=== PATIENT | male | born 1975 | race Caucasian/White ===

== ENCOUNTER 2024-03-06 12:59 | Emergency (ER) | payer OTHER, SELFPAY ==
--- NOTE | ~2024-03-06 | XR_ITS ---
EXAMINATION: XR CHEST CLINICAL INFORMATION: Shortness of breath. COMPARISON: Chest radiograph dated 01/08/2014. TECHNIQUE: 2 views of the chest were obtained. FINDINGS: Trace left-sided pleural effusion. No airspace consolidation. No pneumothorax. Stable cardiomediastinal silhouette. XR/XR chest 2V IMPRESSION: Trace left-sided pleural effusion. Electronically signed by: João Regalado MD 03/06/2024 03:57 PM [facility]
[2024-03-06 13:12] VITALS: BP 125/77; PULSE 98; RESP 20; TEMP 36.5; O2SAT 98; BMI 26.1
--- NOTE | 2024-03-06 13:17 | ED_ITS ---
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 He was sick 3 weeks ago with chest congestion cough runny nose negative viral panels at home treated with a Zpak that did help. He has not traveled, no sick contacts. He did have asthma as a child he notes taking his INH has improved. He is here today from nephro office given persistent dyspnea with exertion and his resting HR is up to 80s from 60s. He feels wiped out since this illness. He is due for rituximab on Tuesday. He notes his swelling is good for him and not worse. MD elicited complaint: shortness of breath Pertinent past history: asthma Onset (ago): week(s) (3) Context: recent illness Timing: intermittent Severity: moderate Exacerbating factors: lying flat and exertion Relieving factors: rest Associated symptoms: cough and other (rhinorrhea at night) Treatment prior to arrival: other (abx) Related Data Allergies Allergy/AdvReac Type Severity Reaction Status Date / Time amoxicillin [AMOXICILLIN] Allergy Unknown NAUSEA, Verified 03/06/24 13:15 FEELING TIRED Review of Systems 2 Review of Systems: Constitutional : No Fever, No Chills ENT/Mouth : No Hoarseness, No sore throat, pos Rhinorrhea Eyes: No Redness, No Discharge, No Vision Changes Cardiovascular : No Chest Pain, positive SOB, positive Dyspnea on Exertion, pos baseline Edema Respiratory : positive Cough, No Sputum, no Wheezing, Gastrointestinal : No Nausea, No Vomiting, No Diarrhea, No abdominal Pain Genitourinary : No Dysuria, No Hematuria Musculoskeletal : No joint pain, No Myalgias Skin : No rash Neuro : No Weakness, No Numbness, No Headache All other systems reviewed and are negative PMFSH Past Medical History Attestation statement: The following information was validated with the patient. Source: old records reviewed Medical History Asthma Minimal change disease Social History Social History (Updated 03/06/24 @ 22:08 by Lizzy Gallardo DO) Patient Tobacco Use Status: Never used Tobacco Advance Directives: No Advance Directives Information Provided: No Physical Exam 2 Vital Signs: Vital Signs: Last Vital Signs Temp 98.3 F 03/06/24 21:33 Pulse 84 03/06/24 21:33 Resp 16 03/06/24 21:33 BP 131/77 03/06/24 21:33 Pulse Ox 96 03/06/24 21:33 O2 Del Method Room Air 03/06/24 21:33 BMI result Body Mass Index 26.1 Appearance: Alert. Oriented X3. No acute distress. Eyes: Pupils equal, round and reactive to light. ENT: Pharynx normal. He is sniffing with rhinorrhea at baseline Neck: Normal inspection. Neck supple. CVS: Normal heart rate and rhythm. Pulses normal. Respiratory: No respiratory distress. Breath sounds normal. Abdomen: Soft and nontender. Skin: Skin warm and dry. Normal skin color. Normal skin turgor. Extremities: 1+ symmetric pitting lower extremity edema. Neuro: Oriented X 3. No motor deficit. No sensory deficit. Course Course Course Narrative: This is an RME: Additional HPI, ROS, PE not included below will be deferred to primary provider. RME assessment and note performed by: Pia Montes PA-C This is a [id number]-male, with a past medical history of minimal change disease currently being followed by emt i/85 - Dr. Coyle in [place], who presents emergency department with concerns for ongoing shortness for breath, cough for the last week. Patient states that he had a cold last week tested negative for COVID and flu, and was started on azithromycin which he completed. He also was placed on Tessalon which she was taking without any relief. Patient states that he has been having a relapse in his minimal change disease for the last 12-14 weeks. Patient states that he also was on furosemide for minimal change disease relapse, states this relapsed has been ongoing for the last 12-14 weeks. He expresses that he has had profound exertional shortness of breath, states he typically runs several miles a week however is unable to walk even a mi without being profoundly fatigued. He also states that he has had shortness for breath upon walking up the stairs. Denies any chest pain. He was scheduled to have an infusion performed on Tuesday for his minimal change disease however is concerned due to ongoing shortness of breath. Patient sounds congested, lungs are clear to auscultation. Note was faxed over. Plan: labs, ua, ekg, further er eval needed. Medical Decision Making Medical Decision Making 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 now with persisent 3 weeks of elevated HR at baseline (80s) [place]O and feels like his exercise capacity is reduced he has no ACS like symptoms and EKG is non specific, he does not have a fever - low suspicion for infection, he has no risk factors that we are aware of for infection either, no CP, he is edema is better than baseline, he had bedside ECHO trace effusion, he declines CTA to look for VTE - at this time stable for DC follow up with PCP for ECHO Differential Diagnosis Differential Diagnoses: The differential diagnosis associated with the presentation includes VTE, pericardial effusion, suspect post viral illness with reactive airway disease, edema Admission/Observation Consideration of admission/observation: Escalation of care including admission/observation considered work up reassuring offer to do CTA but patient declines, he states he is not worried about VTE bedside ECHO trace effusion no tamponade he is laying flat on exam no resp distress, clear lungs, no hypoxia trop negative, BNP negative no signs of active infection he is likely not a candidate for steroids due to impending rituximab long discussion he plans to go home and follow up as needed or return if symptoms worsen Lab Data [facility] Lab Attestation statement: I reviewed the patient's lab results. 03/06/24 13:47 03/06/24 13:47 Labs: Lab Results 03/06/24 Range/Units 13:47 WBC 8.4 (4.8-10.8) X10*3/uL RBC 4.83 (4.60-5.80) X10*6/uL Hgb 15.0 (14.0-18.0) g/dl Hct 43.9 (42.0-52.0) % MCV 90.9 (80.0-98.0) fL MCH 31.1 (27.0-33.0) pg MCHC 34.2 (31.0-36.0) g/dl RDW 11.9 (11.0-16.0) % Plt Count 371 (160-400) X10*3/uL MPV 9.4 (9.4-12.4) fL Immature Gran % (Auto) 0.4 (0.0-0.4) % Neut % (Auto) 75.9 H (45-73) % Lymph % (Auto) 12.9 L (20-40) % Carson % (Auto) 8.1 (2-11) % Eos % (Auto) 1.9 (0-4) % Baso % (Auto) 0.8 (0-2) % Lymph # (Auto) 1.1 L (1.2-4.9) X10*3/uL Carson # (Auto) 0.7 (0.1-1.2) X10*3/uL Eos # (Auto) 0.2 (0.0-0.4) X10*3/uL Baso # (Auto) 0.1 (0.0-0.2) X10*3/uL Abs Immat Gran (auto) 0.03 (0.00-0.03) X10*3/uL Absolute Neuts (auto) 6.4 (2.0-8.3) x10*3/uL Absolute Nucleated RBC 0.000 (0.0-0.012) X10*3/uL Nucleated RBC % (auto) 0.0 (0.0-0.2) /100WBC PT 11.5 (10.9-12.4) SEC INR 1.0 (0.9-1.1) Sodium 136 (135-145) mmol/L Potassium 4.0 (3.3-5.1) mmol/L Chloride 102 (96-108) mmol/L Carbon Dioxide 29 (22-29) mmol/L Anion Gap 9 L (12-20) BUN 15 (9-16) mg/dL Creatinine 1.01 (0.5-1.4) mg/dL Estim Creat Clear Calc 88.4 Estimated GFR > 60 Random Glucose 87 (60-115) mg/dL Calcium 7.9 L (8.4-10.2) mg/dL Magnesium 2.3 (1.6-2.6) mg/dL Total Bilirubin 0.2 (0.0-1.0) mg/dL Direct Bilirubin < 0.2 (0.0-0.5) mg/dL AST 25 (5-37) U/L ALT 14 (0-40) U/L Alkaline Phosphatase 88 (39-117) U/L Total Creatine Kinase 431 H (38-174) U/L Troponin I High Sens 2.8 (<3.5-35.0) ng/L B-Natriuretic Peptide 28 (<100) pg/mL Total Protein 5.2 L (6.5-8.0) g/dL Albumin 1.7 L (3.5-5.0) g/dL Urine Color Dark Yellow Urine Appearance Cloudy Urine pH 6.5 (5.0-9.0) Ur Specific [place] >= 1.030 H (1.005-1.025) Urine Protein >=1000 (4+) H (Neg-Trace) mg/dL Urine Glucose (UA) Negative (Negative) mg/dL Urine Ketones Trace (Negative) mg/dL Urine Blood Moderate (2+) H (Negative) Urine Nitrite Negative (Negative) Ur Leukocyte Esterase Negative (Negative) Urine RBC 11-20 H (0-2) /HPF Urine WBC 0-5 (0-5) /HPF Ur Squamous Epith Cells 3-5 (0-2) /HPF Urine Bacteria None Seen (None Seen) Hyaline Casts 11-20 (0-2) /LPF Granular Casts Present Influenza Type A (PCR) NEGATIVE (Negative) Influenza Type B (PCR) NEGATIVE (Negative) RSV RNA Qual (PCR) NEGATIVE (Negative) SARS-CoV-2 RNA (RT-PCR) NEGATIVE (Negative) Independent Interpretation I performed an independent interpretation of an: EKG and Plain X-Ray (trace left effusion) Interpretation: Rate: 81 Rhythm: NSR [place]: normal Normal P waves. Normal MIYA. Normal QRS complex. ST T wave : normal no TY qTC: 408 prior studies: no acute ischemia The study has been interpreted contemporaneously by me. . Radiology Impression Discussion of test interpretation with radiology: I have reviewed the radiologist's reading. Independent Historian Clinical information obtained from an independent historian. History obtained from or confirmed by: Spouse External Record Review External record reviewed: Outpatient record Procedures Procedure Narrative Procedure Narrative: limited bedside ECHO parasternal apical subxiphoid trace effusion minimal no tamponade Discharge Plan Discharge Clinical Impression: Acute dyspnea Patient Disposition: Home, Self-Care Instructions: Dyspnea (ED) Additional Instructions: EKG reassuring CBC normal chemistry reassuring normal troponin and cardiac marker, Cr 1.01 , GFR > 60 negative for flu covid and rsv bedside ECHO trace fluid very mild as discussed further testing would be CTA of the chest for blood clot, lung pathology - you can return at any time if you change your mind albuterol in AM and PM fluticasone at night return for any worsening symptoms or concerns IT IS RECOMMENDED YOU FOLLOW UP WITH YOUR DOCTOR FOR FORMAL ECHO (ULTRASOUND) OF THE HEART COMPARISON: Chest radiograph dated 01/08/2014. TECHNIQUE: 2 views of the chest were obtained. FINDINGS: Trace left-sided pleural effusion. No airspace consolidation. No pneumothorax. Stable cardiomediastinal silhouette. XR/XR chest 2V IMPRESSION: Trace left-sided pleural effusion. Interventions: ED Discharge Assessment Last Done: 03/06/24 21:33 Discharge Date/Time: 03/06/24 21:34 Print Language: Maldivian
--- NOTE | 2024-03-06 13:26 | ECG_ITS ---
Test Reason : sob Blood Pressure : / mmHG Vent. Rate : 081 BPM Atrial Rate : 081 BPM P-R Int : 122 ms QRS Dur : 074 ms QT Int : 352 ms P-R-T Axes : 066 052 050 degrees QTc Int : 408 ms Normal sinus rhythm Normal ECG When compared to the previous EKG of No significant changes seen Referred By: Pia Montes Electronically Signed By:STAR QURESHI MD
[2024-03-06 14:03] LABS: MANUAL DIFF FLAG NO
[2024-03-06 14:05] LABS: Basophils Absolute Auto 0.1 X10*3/uL (0.0-0.2); Basophils Percent Auto 0.8 % (0-2); Eosinophils Absolute Auto 0.2 X10*3/uL (0.0-0.4); Eosinophils Percent Auto 1.9 % (0-4); Hematocrit 43.9 % (42.0-52.0); Imm Gran Abs Auto 0.03 X10*3/uL (0.00-0.03); Imm Gran Pct Auto 0.4 % (0.0-0.4); Lymphocytes Absolute Auto 1.1 X10*3/uL (1.2-4.9); Lymphocytes Percent Auto 12.9 % (20-40); Mean Corpuscular HGB Conc 34.2 g/dl (31.0-36.0); Mean Corpuscular Hemoglobin 31.1 pg (27.0-33.0); Mean Corpuscular Volume 90.9 fL (80.0-98.0); Mean Platelet Volume 9.4 fL (9.4-12.4); Monocytes Absolute Auto 0.7 X10*3/uL (0.1-1.2); Monocytes Percent Auto 8.1 % (2-11); Neutrophils Absolute Auto 6.4 x10*3/uL (2.0-8.3); Neutrophils Percent Auto 75.9 % (45-73); Platelet Count 371 X10*3/uL (160-400); Red Blood Count 4.83 X10*6/uL (4.60-5.80); Red Cell Distribution Width 11.9 % (11.0-16.0); White Blood Count 8.4 X10*3/uL (4.8-10.8)
[2024-03-06 14:06] LABS: Appearance Urine Cloudy; Color Urine Dark Yellow; Glucose Urine UA Negative (Negative); Leukocyte Esterase Urine Negative (Negative); Nitrite Urine Negative (Negative); PH 6.5 (5.0-9.0); Specific Gravity - Urine >= 1.030 (1.005-1.025); UMIC TRIGGER UACC YES; Urine Blood Moderate (2+) (Negative); Urine Ketones Trace mg/dL (Negative); Urine Protein >=1000 (4+) mg/dL (Neg-Trace)
[2024-03-06 14:13] LABS: Prothrombin Time 11.5 SEC (10.9-12.4)
[2024-03-06 14:21] LABS: Alanine Aminotransferase 14 U/L (0-40); Albumin Level 1.7 g/dL (3.5-5.0); Alkaline Phosphatase 88 U/L (39-117); Anion Gap 9 (12-20); Aspartate Amino Transferase 25 U/L (5-37); Bilirubin Direct < 0.2 mg/dL (0.0-0.5); Bilirubin Total 0.2 mg/dL (0.0-1.0); Blood Urea Nitrogen 15 mg/dL (9-16); Calcium 7.9 mg/dL (8.4-10.2); Carbon Dioxide 29 mmol/L (22-29); Chloride 102 mmol/L (96-108); Creatinine Clr Calc Pharmacy 88.4; Estimated Glomerular Filt Rate > 60; Glucose Random 87 mg/dL (60-115); Magnesium 2.3 mg/dL (1.6-2.6); Sodium 136 mmol/L (135-145); Total Protein 5.2 g/dL (6.5-8.0)
[2024-03-06 14:25] LABS: Bacteria Urine None Seen (None Seen); Granular Casts Urine Present; WBC Urine 0-5 /HPF (0-5)
[2024-03-06 14:26] LABS: B Type Natriuretic Peptide 28 pg/mL (<100); Troponin-I High Sensitivity 2.8 ng/L (<3.5-35.0)
[2024-03-06 14:47] LABS: Influenza A PCR NEGATIVE (Negative); Influenza B PCR NEGATIVE (Negative); Resp Syncy Virus RNA Qual PCR NEGATIVE (Negative); SARS COV2 PCR INHOUSE NEGATIVE (Negative)
[2024-03-06 21:33] VITALS: BP 131/77; PULSE 84; RESP 16; TEMP 36.8; O2SAT 96
== END 2024-03-06 21:34 | disposition home or self-care (01) ==
LOC: HO.ED 21:31
PROVIDERS: Physician Assistant Medical; Emergency Provider Emergency Medicine; PCP Internal Medicine
DX: R06.00 Dyspnea, unspecified (principal); R05.9 Cough, unspecified; R09.89 Other specified symptoms and signs involving the circulatory and respiratory systems; R06.02 Shortness of breath; J45.909 Unspecified asthma, uncomplicated; Z03.818 Encounter for observation for suspected exposure to other biological agents ruled out
CPT/HCPCS: 0241U; 36415; 71046; 80048; 80076; 81001; 82550; 83735; 83880; 84484; 85025; 85610; 93005; 99283

== ENCOUNTER → 2024-03-06 13:26 | Outpatient (BNV) | payer OTHER, SELFPAY | PROVIDERS: Emergency Provider Emergency Medicine; PCP Internal Medicine; Visit Provider Internal Medicine Cardiovascular Disease | DX: R06.02 Shortness of breath (principal) | CPT/HCPCS: 93010 ==